=== PATIENT | female | born 1980 | race Caucasian/White ===

== ENCOUNTER → 2021-09-16 15:59 | Outpatient (CLI) | payer MEDICAID, SELFPAY ==
--- NOTE | 2021-09-16 16:06 | MM_ITS ---
PROCEDURE INFORMATION: Exam: Bilateral Screening 3D Mammography Exam date and time: 09/16/2021 4:07 PM Age: 40 years old Clinical indication: Screening examination TECHNIQUE: Imaging protocol: Bilateral Screening tomosynthesis and 2D mammography including computer-aided detection (CAD) when performed. COMPARISON: No relevant prior studies available. FINDINGS: MAMMOGRAPHY: Breast composition: There are scattered areas of fibroglandular density. Mass: None. Architectural distortion: No new or suspicious architectural distortion. Calcifications: No new or suspicious calcifications are present Asymmetric density: No new or suspicious asymmetric density is present Skin thickening: None. Axillary adenopathy: None. Implants: Subpectoral augmentation implants are present. IMPRESSION: No mammographic evidence of malignancy. Recommend annual screening mammography unless otherwise clinically indicated. ASSESSMENT: BI-RADS category 2: Benign
== END ==
PROVIDERS: PCP Family Medicine; Visit Provider Family Medicine
DX: Z12.31 Encounter for screening mammogram for malignant neoplasm of breast (principal)
CPT/HCPCS: 77062; 77063; 77066; 77067; G0279

== ENCOUNTER 2022-11-13 13:16 | Emergency (ER) | payer MEDICAID, SELFPAY ==
[2022-11-13] VITALS (9 sets, daily range): BP systolic 86–126; BP diastolic 52–90; PULSE 82–104; RESP 16–18; TEMP 36.7–37.1; O2SAT 96–99; BMI 25.2
--- NOTE | 2022-11-13 13:25 | CT_ITS ---
FINAL REPORT CLINICAL HISTORY: abd pain, frequent emesis FINDINGS: CT OF THE ABDOMEN AND PELVIS WITH CONTRAST Axial CT images of the abdomen and pelvis were obtained after the administration of oral and iv contrast. Coronal reformatted images were also obtained and reviewed.This study was performed with techniques to keep radiation doses as low as reasonably achievable (ALARA). Individualized dose reduction techniques using automated exposure control or adjustment of mA and/or kV according to the patient's size were employed. Abdomen: The lung bases are clear. The heart is normal in size. The liver has an unremarkable appearance, without evidence of mass or biliary ductal dilatation. The spleen is unremarkable. No adrenal mass is present. The pancreas has an unremarkable appearance. There are numerous small nonobstructing bilateral renal stones. There is mild bilateral hydronephrosis and hydroureter. No ureteral stone is identified. The aorta is normal in caliber. There is no free fluid or adenopathy. No mass or abnormal fluid collection is seen. Pelvis: The appendix normal. There is diffuse bladder wall thickening which is likely inflammatory. The patient is status post hysterectomy. There is no evidence of mass or adenopathy. There is no evidence of bowel obstruction. IMPRESSION: Mild bilateral hydronephrosis and hydroureter with no ureteral stone identified. Small nonobstructing bilateral renal stones. Diffuse bladder wall thickening is likely inflammatory. Reviewed, Interpreted and Dictated by Dave Dominguez III, MD Transcribed by Cassie Venegas Authenticated and [facility]
--- NOTE | 2022-11-13 13:25 | XR_ITS ---
FINAL REPORT CLINICAL HISTORY: Acute cough, nausea FINDINGS: A single portable view of the chest was obtained. The heart size and pulmonary vascularity are within normal limits. The mediastinum is within normal limits. No acute pulmonary abnormality is identified. The bony thorax is intact. IMPRESSION: No active cardiopulmonary disease. Reviewed, Interpreted and Dictated by Dave Dominguez III, MD Transcribed by Csasie Venegas Authenticated and [facility]
--- NOTE | 2022-11-13 13:29 | HMH.EDGENADL ---
Discharge Plan Disposition Patient Disposition: Home, Self-Care Condition: Good Prescriptions Prescriptions: New prednisone 10 mg tablet 10 mg PO ONCE Qty: 1 0RF Rx Instructions: see taper instructions dextromethorphan HBr [Cough Gels (DM)] 15 mg capsule 30 mg PO Q8H PRN (Reason: cough) Qty: 10 0RF Discontinued promethazine-DM 120 ML syrup 5 ml PO Q6HP PRN (Reason: Cough) Qty: 240 0RF prednisone 10 MG tablet 10 mg PO DAILY 9 Days Qty: 21 0RF Rx Instructions: Take 40 mg for 3 days, then take 20 mg for 3 days, then take 10 mg for 3 days, then stop. azithromycin 250 MG tablet 250 mg PO UD DOSE PK Qty: 6 0RF Rx Instructions: Take two (2) tablets today, then one (1) tablet days #2 thru #5 No Action albuterol sulfate 18 GM HFA aerosol inhaler 1 - 2 puffs IH Q4-6H PRN (Reason: Shortness Of Breath Or Wheezing) Qty: 1 0RF Referrals Follow up/Referrals: Abelino Mcrae MD [Referring] - See instructions Marty South [Primary Care Provider] - See instructions Activity Restrictions/Add. Instructions Additional Instructions/Restrictions: I have prescribed a one-time dose of steroids which should help with your sore throat and some cough medication. As discussed, I do believe your smoking is likely contributing to some of your symptoms. I have also placed a referral to the GI doctor for possible endoscopy if the symptoms persist. Clinical Impressions Clinical Impression: Acute bronchitis Qualifiers: Bronchitis organism: unspecified organism Qualified Code(s): J20.9 - Acute bronchitis, unspecified Instructions Patient Instructions: DI for Acute Abdominal Pain Discharge ED Provider: Porfirio Becerril General Adult HPI <Cain Gambino MD - Last Filed: 11/13/22 14:55> General Chief complaint: Abdominal Pain Stated complaint: vomiting, JUNIOR, stomach pain Time Seen by Provider: 11/13/22 13:18 History of Present Illness HPI narrative: This 42-year-old female with a history of rheumatoid arthritis, hypertension, and some degree of kidney dysfunction presents to the emergency department with reportedly months of a tickle in her throat that causes emesis anytime she eats. Nonbloody, nonbilious. Patient states she has chronic mild abdominal pain from frequent vomiting. She denies dysuria but admits to having incontinence with coughing fits. She states she has seen her primary care physician who put her on an allergy pill and Pepcid but her symptoms have not improved. Patient has not been evaluated with imaging for these problems. She states she also has a mild frontal headache yesterday and today controlled by ibuprofen. She denies any current dizziness, numbness, tingling, weakness, chest pain, shortness of breath. She does state after a bad coughing fit she will be slightly dizzy but this rapidly improves. Patient does smoke, no alcohol or illicit drug use. When further asked if she is genuinely having emesis after every single thing she eats or drinks, she states no. She does not have nausea preceding the vomiting. She also has not noticed any significant weight loss. Related Data Previous Rx's Medication Instructions Recorded albuterol sulfate 90 mcg/actuation 1 - 2 puffs IH Q4-6H PRN Shortness 03/26/19 aerosol inhaler Of Breath Or Wheezing #1 inh dextromethorphan HBr 15 mg capsule 30 mg PO Q8H PRN cough #10 caps 11/13/22 (Cough Gels (DM)) prednisone 10 mg tablet 10 mg PO ONCE #1 tab 11/13/22 Allergies Allergy/AdvReac Type Severity Reaction Status Date / Time No Known Allergies Allergy Verified 03/26/19 20:51 [facility] <Cain Gambino MD - Last Filed: 11/13/22 14:55> [facility] Disclaimer: The information contained in this section may have been updated after the patient was seen, as this information can be updated by other users. Medical History (Updated 11/13/22 @ 16:40 by Porfirio Becerril MD) High blood pressure Rheumatoid arthritis Surgical History (Updated 11/13
--- NOTE | 2022-11-13 13:38 | CT_ITS ---
FINAL REPORT CLINICAL HISTORY: Headache, cyclic vomiting FINDINGS: Axial images of the head were obtained without contrast. Coronal reformatted images were also obtained.This study was performed with techniques to keep radiation doses as low as reasonably achievable (ALARA). Individualized dose reduction techniques using automated exposure control or adjustment of mA and/or kV according to the patient''s size were employed. There is no evidence of intracranial hemorrhage or mass. The ventricular size is within normal limits. There is no evidence of shift of the midline structures. No abnormal extra axial fluid collection is identified. No skull abnormality is seen on the bone window images. IMPRESSION: No acute intracranial abnormality. Reviewed, Interpreted and Dictated by Dave Dominguez III, MD Transcribed by Cassie Venegas Authenticated and . [facility]
--- NOTE | 2022-11-13 13:42 | PC.NURSE ---
pt to ct scan
[2022-11-13 13:57] LABS: Chloride 100 mmol/L (98-107); Sodium 134 mmol/L (136-145)
[2022-11-13 13:59] LABS: Alanine Aminotransferase 25 U/L (12-78); Aspartate Amino Transferase 30 U/L (14-36); Blood Urea Nitrogen 3 mg/dl (7-17); Creatinine Clearance Estimated 135 mL/min (50-200); Estimated Glomerular Filt Rate 109 ml/min (>60); GFR (African American) 132 ML/MIN (>60)
[2022-11-13 14:00] LABS: Albumin Level 3.5 g/dl (3.5-5.0); Albumin/Globulin Ratio 1.1 (1.1-1.8); Alkaline Phosphatase 81 U/L (38-126); Anion Gap 9.5 mEq/L (5-15); Bilirubin,Total 0.2 mg/dl (0.2-1.3); Calcium 8.5 mg/dl (8.4-10.2); Carbon Dioxide 27 mmol/L (22.0-30.0); Globulin 3.3 g/dL (1.3-3.2); Glucose 140 mg/dl (74-100); Lipase 87 U/L (23-300); Total Protein,Serum 6.8 g/dl (6.3-8.2)
--- NOTE | 2022-11-13 14:03 | PC.NURSE ---
pt returned back from radiology and is providing urine specimen now
[2022-11-13 14:21] LABS: Basophils # 0.1 K/mm3 (0-0.2); Basophils % 0.8 % (0.1-2.0); Eosinophils # 0.3 K/mm3 (0.0-0.4); Eosinophils % 2.7 % (0.1-12.0); Hematocrit 41.6 % (37.0-47.0); Hemoglobin 13.4 g/dL (12.2-16.2); Lymphocytes # 2.3 K/mm3 (0.7-4.5); Lymphocytes % 25.3 % (10-50); Mean Corpuscular HGB Conc 32.2 g/dL (31.8-35.4); Mean Corpuscular Hemoglobin 27.6 pg (27.0-31.2); Mean Corpuscular Volume 85.9 fl (81-99); Mean Platelet Volume 10.6 fl (7.4-10.4); Monocytes # 0.6 K/mm3 (0.1-1.0); Monocytes % 6.6 % (1.7-9.3); Neutrophils % 64.6 % (37.0-80.0); Platelet Count 234 K/mm3 (142-424); Red Blood Count 4.84 M/mm3 (4.20-5.40); Red Cell Distribution Width 15.4 % (11.5-17.5); White Blood Count 9.2 K/mm3 (4.8-10.8)
[2022-11-13 14:26] LABS: Microscopic, Urine URINE MICROSCOPIC (MICROSCOPIC)
[2022-11-13 14:36] LABS: Appearance,Urine CLEAR (Clear); Bilirubin,Urine Negative (Negative); Blood, Urine Negative (Negative); Color,Urine YELLOW (Yellow); Glucose,Urine (UA) Negative (Negative); Ketones,Urine Negative (Negative); Leukocyte Esterase,Urine Negative (Negative); Nitrate,Urine Negative (Negative); Protein,Urine Negative (Negative); Urobilinogen,Urine 0.2 EU/dl (0.2)
[2022-11-13 15:04] LABS: Potassium 2.5 mmoL/L (3.5-5.1)
--- NOTE | 2022-11-13 15:04 | PC.NURSE ---
Dr. Becerril notified of critical potassium
[2022-11-13 15:06] LABS: Squamous Epithelial Cell,Urine Occasional #/hpf (0-5)
--- NOTE | 2022-11-13 15:37 | PC.NURSE ---
call made to radiology for update on status of scans. 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
--- NOTE | 2022-11-13 16:13 | PC.NURSE ---
Rounded on pt. No needs voiced at this time. Call light within reach.
--- NOTE | 2022-11-13 17:38 | PC.NURSE ---
Pt called, stating she is at the pharmacy to greens picker her medication. States I was supposed to get a cough medication but they said he sent in something for depression . I s/w Dr. Becerril and he reports I was just sending in the dextromethorphan. I will recheck it and send it . Pt let known Dr. Becerril was adjusting the medication and would send it electronically to the pharmacy shortly.
== END 2022-11-13 17:00 | disposition home or self-care (01) ==
PROVIDERS: Emergency Medicine; Emergency Provider Emergency Medicine; PCP Family Medicine
DX: J20.9 Acute bronchitis, unspecified (principal); E87.6 Hypokalemia; R11.10 Vomiting, unspecified; R10.9 Unspecified abdominal pain; F17.210 Nicotine dependence, cigarettes, uncomplicated; I10 Essential (primary) hypertension; M06.9 Rheumatoid arthritis, unspecified; R51.9 Headache, unspecified
CPT/HCPCS: 70450; 71045; 74177; 80053; 81001; 83605; 83690; 85025; 96361; 96374; 99285; Q9967

== ENCOUNTER → 2022-11-20 23:38 | Outpatient (CLI) | payer MEDICAID, SELFPAY ==
[2022-11-20 18:30] LABS: Adenovirus,PCR Not Detected (NotDetected); Coronavirus 19, PCR Not Detected (NotDetected); Coronavirus 229E Not Detected (NotDetected); Coronavirus NL63 Not Detected (NotDetected); Coronavirus OC43 Not Detected (NotDetected); Coronovirus HKU1,PCR Not Detected (NotDetected); Human Metapneumovirus Not Detected (NotDetected); Influenza A, PCR Not Detected (NotDetected); Influenza AH1, 2009 Not Detected (NotDetected); Influenza AH1, PCR Not Detected (NotDetected); Influenza AH3,PCR Not Detected (NotDetected); Influenza B, PCR Not Detected (NotDetected); Parainfluenza 1, PCR Not Detected (NotDetected); Parainfluenza 2, PCR Not Detected (NotDetected); Parainfluenza 3, PCR Not Detected (NotDetected); Parainfluenza 4, PCR Not Detected (NotDetected); Respiratory Syncytial Virus Not Detected (NotDetected); Rhinovirus/Enterovirus Not Detected (NotDetected)
[2022-11-20 18:39] LABS: Chloride 97 mmol/L (98-107); Sodium 133 mmol/L (136-145)
[2022-11-20 18:42] LABS: Alanine Aminotransferase 20 U/L (12-78); Albumin Level 3.5 g/dl (3.5-5.0); Albumin/Globulin Ratio 1.2 (1.1-1.8); Alkaline Phosphatase 87 U/L (38-126); Aspartate Amino Transferase 22 U/L (14-36); Bilirubin,Total 0.5 mg/dl (0.2-1.3); Blood Urea Nitrogen 6 mg/dl (7-17); Carbon Dioxide 26 mmol/L (22.0-30.0); Estimated Glomerular Filt Rate 78 ml/min (>60); GFR (African American) 95 ML/MIN (>60); Globulin 2.9 g/dL (1.3-3.2); Total Protein,Serum 6.4 g/dl (6.3-8.2)
[2022-11-20 18:43] LABS: Calcium 8.8 mg/dl (8.4-10.2); Glucose 91 mg/dl (74-100)
[2022-11-20 18:47] LABS: Anion Gap 12.6 mEq/L (5-15); Potassium 2.6 mmoL/L (3.5-5.1)
== END ==
PROVIDERS: PCP Family Medicine; Visit Provider Student in an Organized Health Care Education/Training Program
DX: J20.9 Acute bronchitis, unspecified (principal); J02.9 Acute pharyngitis, unspecified; R05.9 Cough, unspecified; Z72.0 Tobacco use
CPT/HCPCS: 80053; 87070; 87632; 87635

== ENCOUNTER → 2022-11-20 23:39 | Outpatient (CLI) | payer MEDICAID, SELFPAY | PROVIDERS: PCP Family Medicine; Visit Provider Student in an Organized Health Care Education/Training Program | DX: J02.9 Acute pharyngitis, unspecified (principal) ==

== ENCOUNTER 2022-11-27 15:38 | Emergency (ER) | payer MEDICAID, SELFPAY ==
[2022-11-27 15:38] VITALS: BP 131/90; PULSE 101; RESP 18; TEMP 36.8; O2SAT 98; BMI 25.3
--- NOTE | 2022-11-27 15:55 | EXP.UTC ---
Discharge Plan Disposition Patient Disposition: Home, Self-Care Condition: Good Prescriptions Prescriptions: New fluconazole [Diflucan] 100 mg tablet 100 mg PO DAILY 3 Days Qty: 3 2RF nystatin 100,000 unit/mL suspension 5 ml PO QID 10 Days Qty: 200 0RF Rx Instructions: swish and spit No Action zolpidem 10 mg tablet 10 mg PO HS folic acid 1 mg tablet 2 mg PO DAILY Patient Comments: TAKE 2 TABLETS BY MOUTH ONCE DAILY omeprazole 40 mg capsule,delayed release(DR/EC) 40 mg PO DAILY solifenacin 10 mg tablet 10 mg PO DAILY Patient Comments: TAKE 1 TABLET BY MOUTH ONCE DAILY famotidine 40 mg tablet 40 mg PO HS Patient Comments: TAKE 1 TABLET BY MOUTH EVERY DAY AT BEDTIME losartan-hydrochlorothiazide 100-12.5 mg tablet 1 tab PO DAILY Patient Comments: TAKE 1 TABLET BY MOUTH ONCE DAILY leflunomide [Arava] 20 mg tablet 20 mg PO DAILY fluticasone propionate [Allergy Relief (fluticasone)] 50 mcg/actuation spray,suspension 1 spray intranasal DAILY Qty: 16 2RF Rx Instructions: administer into each nostril benzonatate 100 mg capsule 100 mg PO BID PRN (Reason: cough) Qty: 14 0RF potassium chloride 20 mEq tablet extended release See Rx Instructions .ROUTE .COMPLEX Qty: 60 3RF Rx Instructions: two daily starting today, continue twice a day until labs are rechecked early next week albuterol sulfate 18 GM HFA aerosol inhaler 1 - 2 puffs inhalation Q4-6H PRN (Reason: Shortness Of Breath Or Wheezing) Qty: 1 0RF Referrals Follow up/Referrals: Marty South [Primary Care Provider] - See instructions Activity Restrictions/Add. Instructions Additional Instructions/Restrictions: Drink plenty of fluids. Take tylenol or ibuprofen for pain. Take the medications as directed. Follow up with your regular doctor. GO TO THE ER FOR ANY WORSENING SYMPTOMS Clinical Impressions Clinical Impression: Oral thrush Instructions Patient Instructions: DI for Thrush, Nystatin, Thrush-Adult Discharge ED Provider: Michael Chen [facility] HPI General Stated complaint: sore throat, Time Seen by Provider: 11/27/22 15:55 History of Present Illness Provider Complaint: She states that for the past 2 days she has had sore throat, chills, body aches and low grade fever. Related Data Home Medications Medication Instructions Recorded Confirmed famotidine 40 mg tablet 40 mg PO HS 11/20/22 11/27/22 folic acid 1 mg tablet 2 mg PO DAILY 11/20/22 11/27/22 leflunomide 20 mg tablet (Arava) 20 mg PO DAILY 11/20/22 11/27/22 losartan 100 1 tab PO DAILY 11/20/22 11/27/22 mg-hydrochlorothiazide 12.5 mg tablet omeprazole 40 mg capsule,delayed 40 mg PO DAILY 11/20/22 11/27/22 release solifenacin 10 mg tablet 10 mg PO DAILY 11/20/22 11/27/22 zolpidem 10 mg tablet 10 mg PO HS 11/20/22 11/27/22 Previous Rx's Medication Instructions Recorded albuterol sulfate 90 mcg/actuation 1 - 2 puffs inhalation Q4-6H PRN 03/26/19 aerosol inhaler Shortness Of Breath Or Wheezing #1 inh benzonatate 100 mg capsule 100 mg PO BID PRN cough #14 caps 11/20/22 fluticasone propionate 50 1 spray intranasal DAILY #16 grams 11/20/22 mcg/actuation nasal spray,suspension (Allergy Relief (fluticasone)) potassium chloride 20 mEq See Rx Instructions .Route 11/21/22 tablet,extended release .COMPLEX #60 tabs fluconazole 100 mg tablet 100 mg PO DAILY 3 days #3 tabs 11/27/22 (Diflucan) nystatin 100,000 unit/mL oral 5 ml PO QID 10 days #200 mL 11/27/22 suspension Allergies Allergy/AdvReac Type Severity Reaction Status Date / Time No Known Allergies Allergy Verified 11/27/22 16:01 [facility] Disclaimer: The information contained in this section may have been updated after the patient was seen, as this information can be updated by other users. Medical History High blood
[2022-11-27 16:09] LABS: UTC Strep Screen (Rapid) Negative (Negative)
[2022-11-27 16:28] VITALS: BP 131/90; PULSE 101; RESP 18; TEMP 36.8; O2SAT 98
== END 2022-11-27 16:28 | disposition home or self-care (01) ==
PROVIDERS: Emergency Provider Nurse Practitioner Family; PCP Family Medicine
DX: J02.9 Acute pharyngitis, unspecified (principal); B37.0 Candidal stomatitis; F17.210 Nicotine dependence, cigarettes, uncomplicated; I10 Essential (primary) hypertension; M06.9 Rheumatoid arthritis, unspecified
CPT/HCPCS: 87880; 99204; 99212; G0463

== ENCOUNTER → 2022-12-08 09:18 | Outpatient (CLI) | payer MEDICAID, SELFPAY ==
--- NOTE | 2022-12-08 09:24 | NM_ITS ---
FINAL REPORT TECHNIQUE: 0.543 millicuries of technetium 99m sulfur colloid was ingested with eggs the, 6 ounces of water and toast with butter. CLINICAL HISTORY: NAUSEA AND VOMITING x 7 months 9:55 am .543 tc sulfur colloid injected into 2 whole eggs white toast with butter 6 oz cup of water FINDINGS: GASTRIC EMPTYING SCAN Static images show normal emptying of the stomach into the small bowel. Based on the time activity curve, the estimated half-emptying time is 52 minutes. IMPRESSION: Normal gastric emptying study. Reviewed, Interpreted and Dictated by Dave Dominguez III, MD Transcribed by Chris Bentley Authenticated and [facility]
== END ==
PROVIDERS: PCP Family Medicine; Visit Provider Family Medicine
DX: R11.10 Vomiting, unspecified (principal); R11.2 Nausea with vomiting, unspecified
CPT/HCPCS: 78264; A9541

== ENCOUNTER 2023-04-21 09:50 | Day surgery (SDC) | payer MEDICAID, SELFPAY ==
[2023-04-21 10:40] VITALS: BP 116/81; PULSE 89; RESP 18; TEMP 36.1; O2SAT 97
--- NOTE | 2023-04-21 11:34 | EXP.ANES.CKL ---
[facility] Disclaimer: The information contained in this section may have been updated after the patient was seen, as this information can be updated by other users. Medical History Rheumatoid arthritis High blood pressure Surgical History History of breast augmentation Hx of hysterectomy Family History Other Family history of diabetes mellitus type II Social History Smoking Status: Current every day smoker tobacco type: cigarettes packs per day: 1 alcohol intake: never substance use type: denies use current occupational status: other Travel in the last 8 weeks: None [facility] Anesthesia Checklist Patient Identification Patient Identification: Arm Band and Verbal (Name & ) Structural Data Admitted From: Home Planned Operative Procedure/s: EGD Consent for Planned Operative Procedure(s) Verified: Yes NPO Status Verified Time NPO: 00:00 Additional verifications Anesthesia Reactions: No Airway Assessment Mallampati Score:: Class I C-Spine Mobility Assessed: Yes TMJ Mobility Assessed: Yes Dentition: Edentulous Neurological Assessment Level of Consciousness: Awake Hx Seizures: No Numbness or tingling in extremities: No Anesthesia Plan Anesthesia Risk discussed: Yes Anesthesia Plan: Verified ASA Class: II Anesthesia Type: MAC
[2023-04-21 11:41] VITALS: O2SAT 100
--- NOTE | 2023-04-21 11:54 | P.PCN_ITS ---
Procedure: Date: 04/21/23 Patient Date of :: 1980 Procedure Performed:: EGD Indications:: The patient is a 42-year-old who presents for EGD evaluation of dysphagia, nausea, vomiting, and abdominal pain Performing Provider:: Tonio Reynoso MD Referring Provider:: Megan Staley APRN gastroenterology Sedation:: See RN record Procedure:: The gastroscope was gently passed through the incisoral orifice into the oral cavity and under direct visualization the esophagus was intubated. The endoscope was passed down the esophagus, through the stomach, and into the duodenum. Color, texture, mucosa, and anatomy of the esophagus, stomach, and duodenum were carefully examined with the scope. Findings:: The examined esophagus appeared normal. The Z-line was measured at 37 cm. Biopsies were obtained from the mid and distal esophagus for histology. Biopsies that were obtained from the midesophagus felt fibrotic. Empiric esophageal dilatation was performed with a Campbell dilator 54 Nigerian. There was mild to moderate inflammation characterized by erythema of the gastric antrum and body. Biopsies were obtained with a cold forceps for histology. Examined d uodenum appeared normal. Biopsies were obtained from the duodenum with a cold forceps for histology. Recommendations:: Await pathology results Follow-up with referring provider Complications:: None Estimated blood obtained (mL): 0 Colonoscopy Component Colonoscopy Component Was a colonoscopy performed during today's procedure?: No
[2023-04-21 11:55] VITALS: BP 90/59; PULSE 88; RESP 16; TEMP 36.2; O2SAT 93
[2023-04-21 12:05] VITALS: BP 91/64; PULSE 76; RESP 16; O2SAT 93
[2023-04-21 12:11] VITALS: BP 101/73; PULSE 85; RESP 16; O2SAT 94
--- NOTE | 2023-05-05 11:38 | HMH.SCOPE ---
Procedure: Date: 04/21/23 Patient Date of :: 1980 Procedure Performed:: EGD Indications:: The patient is a 42-year-old who presents for EGD evaluation of nausea, vomiting, abdominal pain, and intermittent dysphagia symptom Performing Provider:: Tonio Reynoso MD Referring Provider:: Megan Staley APRN Sedation:: See RN records Procedure:: The gastroscope was gently passed through the incisoral orifice into the oral cavity and under direct visualization the esophagus was intubated. The endoscope was passed down the esophagus, through the stomach, and into the duodenum. Color, texture, mucosa, and anatomy of the esophagus, stomach, and duodenum were carefully examined with the scope. Findings:: The examined esophagus appeared normal. Biopsies were obtained from the mid and distal esophagus for histology. There was mild erythema in the gastric antrum and body. Biopsies were obtained with a cold forceps for histology. Examined duodenum appeared normal. Biopsies were obtained for histology. The gastroscope was withdrawn and empiric esophageal dilatation was performed with a Campbell dilator at 54 Fr.. Impression: Normal-appearing esophagus Minimal gastritis Normal examined duodenum Empiric esophageal dilatation performed Recommendations:: Await pathology results Follow-up with referring provider Complications:: non Estimated blood obtained (mL): 0 Colonoscopy Component Colonoscopy Component Was a colonoscopy performed during today's procedure?: No
== END 2023-04-21 12:18 | disposition home or self-care (01) ==
PROVIDERS: Visit Provider Internal Medicine
PROC: 0DJ08ZZ Inspection of Upper Intestinal Tract, Via Natural or Artificial Opening Endoscopic (ICD-10-PCS; CPT 43235; principal; 2023-04-21 11:00)
DX: R11.2 Nausea with vomiting, unspecified (principal); R10.9 Unspecified abdominal pain; R13.10 Dysphagia, unspecified; K29.70 Gastritis, unspecified, without bleeding
CPT/HCPCS: 43239; 43248

== ENCOUNTER 2024-09-12 08:34 | Outpatient (CLI) | payer MEDICAID, SELFPAY ==
--- OUTSIDE RECORDS SUMMARY | 2024-09-05 16:30 | XMS_ITS | Encounter Summary ---
[facility] Organization [facility] Address [address] [place] [address] Care Team Providers Care Interviewing Clerk Name Role Phone Marty South MD Primary Care Provider [phone] Reason for Visit * Reason Comments Hypertension Hyperlipidemia Encounter Details Date Type Department Care Team (Late st Contact Info) Description 09/05/2024 4:30 PM EDT Office Visit [facility] [address] [place] [address] Marty South MD [address] [place] [address] Primary hypertension (Primary Dx); Elevated cholesterol; Primary insomnia; Vitamin D deficiency; Personal history of tobacco use, presenting hazards to health Social History Tobacco Use Types Packs/Day Years Used Date Smoking Tobacco: Every Day Cigarettes 1 15 Smokeless Tobacco: Never Alcohol Use Standard Drinks/Week Comments Not Currently 0 (1 standard drink = 0.6 oz pur e alcohol) rare PHQ-2 Answer Date Recorded Retired PHQ-9: Brief Depression Severity Measure Score 1 02/27/2022 PHQ-2 Answer Date Recorded Patient Health Questionnaire-2 Score 0 09/05/2024 Comments No Sex and Gender Information Value Date Recorded Sex Assigned at Female 09/05/2024 3:01 PM EDT Legal Sex Female 3:15 PM EST Gender Identity Not on file Sexual Orientation Not on file 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 Not on file Not on file Not on file documented as of this encounter Last Filed Vital Signs Vital Sign Reading Time Taken Comments Blood Pressure 118/68 09/05/2024 4:12 PM EDT Pulse 82 09/05/2024 4:12 PM EDT Temperature 36.6 C (97.8 F) 09/05/2024 4:12 PM EDT Respiratory Rate 18 09/05/2024 4:12 PM EDT Oxygen Saturation 97% 09/05/2024 4:12 PM EDT Inhaled Oxygen Concentration - - Weight 66.7 kg (147 lb) 09/05/2024 4:12 PM EDT Height 165.1 cm (5' 5 ) 09/05/2024 4:12 PM EDT Body Mass Index 24.46 09/05/2024 4:12 PM EDT documented in this encounter Functional Status documented as of this encounter Progress Notes * Marty South MD - 09/05/2024 4:30 PM EDT Subjective Celestina Lowry is a 43 y.o. female. Cough Associated symptoms: no chest pain, no chills, no fever, no headaches, no rash and no sore throat Celestina Lowry is here for follow-up of hypertension of several years duration. She is not exercising and is not adherent to a low-salt diet. Patient does not check her blood pressure. She is compliant with meds. Celestina Lowry returns today for follow up of Hyperlipidemia Celestina indicates her exercise level as irregularly. Diet: uncahnged Patient is compliant with medications Any side effects to medications: chest pain No myalgia No memory change No Pt is due for labs Sleep doing well with ambien No SE noted with medicine The following portions of the patient's history were reviewed and updated as appropriate: allergies, current medications, past family history, past medical history, past social history, past surgicalhistory, and problem list. Review of Systems Constitutional: Negative for chills and fever. HENT: Negative for congestion and sore throat. Cardiovascular: Negative for chest pain. Gastrointestinal: Negative for abdominal pain, nausea and vomiting. Musculoskeletal: Negative for neck pain. Skin: Negative for rash. Neurological: Negative for weakness and headaches. Objective Physical Exam Vitals and nursing note reviewed. Constitutional: General: She is not in acute distress. Appearance: Normal appearance. She is well-developed. Cardiovascular: Rate and Rhythm: Normal rate and regular rhythm. Heart sounds: Normal heart sounds. Pulmonary: Effort: Pulmonary effort is normal. Breath sounds: Normal breath sounds. Neurological: Mental Status: She is alert and oriented to person, place, and time. Psychiatric: Mood and Affect: Mood normal. Behavior: Behavior normal. Thought Content: Thought content normal. Judgment: Judgment normal. Assessment & Plan Diagnoses and all orders for this visit: 1. Primary hypertension (Primary) - losartan-hydrochlorothiazide (Hyzaar) 50-12.5 MG per tablet; Take 1 tablet by mouth Daily. Dispense: 90 tablet; Refill: 1 - CBC & Differential - Comprehensive Metabolic Panel - Uric Acid 2. Elevated cholesterol - rosuvastatin (Crestor) 10 MG tablet; Take 1 tablet by mouth Every Night. Dispense: 90 tablet; Refill: 1 - Lipid Panel - Comprehensive Metabolic Panel 3. Primary insomnia - zolpidem (AMBIEN) 10 MG tablet; Take 1 tablet by mouth At Night As Needed for Sleep. Dispense: 30tablet; Refill: 5 4. Vitamin D deficiency - Vitamin D,25-Hydroxy 5. Personal history of tobacco use, presenting hazards to health - nicotine (NICODERM CQ) 7 MG/24HR patch; Place 1 patch on the skin as directed by provider Daily. Dispense: 14 patch; Refill: 1 - nicotine (NICODERM CQ) 14 MG/24HR patch; Place 1 patch on the skin as directed by provider Daily. Dispense: 14 patch; Refill: 1 - nicotine (NICODERM CQ) 21 MG/24HR patch; Place 1 patch on the skin as directed by provider Daily.Dispense: 14 patch; Refill: 1 BP doing great, no change in meds Refilled crestor and will check lipids when fasting No change in JUANCARLOS riley reviewed Nicotine patch written, failed chantix in past documented in this encounter Plan of Treatment Upcoming Encounters Date Type Department Care Team (Late st Contact Info) Description 03/09/2025 10:15 AM EST Office Visit [facility] [address] [facility] [place] [place] [address] Marty South MD [address] [place] [address] Scheduled Orders Name Type Priority Associated Diagnoses Orde r Schedule CBC & Differential Lab Panel Routine Primary hypertension Ordered: 09/05/2024 Lipid Panel Lab Routine Elevated cholesterol Ordered: 09/05/2024 Comprehensive Metabolic Panel Lab Routine Primary hypertension Elevated cholesterol Ordered: 09/05/2024 Uric Acid Lab Routine Primary hypertension Ordered: 09/05/2024 Vitamin D,25-Hydroxy Lab Routine Vitamin D deficiency Ordered: 09/05/2024 documented as of this encounter Visit Diagnoses Diagnosis Primary hypertension- Primary Unspecified essential hypertension Elevated cholesterol Pure hypercholesterolemia Primary insomnia Persistent disorder of initiating or maintaining sleep Vitamin D deficiency Personal history of tobacco use, presenting hazards to health documented in this encounter Care Teams Interviewing Clerk Relationship Specialty Start Date End Date Marty South MD [address] [place] [address] PCP - General Family Medicine 01/31/19 documented as of this encounter
--- OUTSIDE RECORDS SUMMARY | 2024-09-12 08:42 | XMS_ITS | Encounter Summary ---
Author Organization [employer] ([place], [place], [place], [place]) Address [address] [place] [address] Care Team Providers Care Dramatic Critic Name Role Phone Rene South MD Primary Care Provider [phone] Encounter Details Date Type Department Care Team (Late st Contact Info) Description 05/17/2020 Transcribed Document [facility] [place] [facility] [place] [address] ProviderElizabeth MD [facility] [place] [id number] Social History Tobacco Use Types Packs/Day Years Used Date Smoking Tobacco: Never Assessed Comments Unknown Sex and Gender Information Value Date Recorded Sex Assigned at Not on file Legal Sex Female 6:52 PM CDT Gender Identity Not on file Sexual Orientation Not on file documented as of this encounter Miscellaneous Notes * Cerner Conversion Note - Historical ProviderMD - 05/17/2020 2:51 PM CDT Nursing Discharge Summary Entered On: 05/17/2020 14:52 EDT Performed On: 05/17/2020 14:51 EDT by KARRIE ZAYAS Discharge Documentation Discharge Date/Time : 05/17/2020 14:51 EDT Patient Disposition, General : Discharge Discharge To : Home with ambulatory/outpatient follow-up Mode Of Departure, General Discharge : Ambulatory Accompanied By, Discharge : Unaccompanied IV Discontinued : Yes Personal Belongings With Patient : Yes Discharge Instructions Reviewed With, Opportunity For Questions Given : Patient Patient Education Completed : Yes Teaching Method : Explanation Teaching Evaluation : Verbalizes understanding Education Comment : jorge infusion without difficulty. a+ox4. skin wdp rsp unlabored/even KARRIE ZAYAS - 05/17/2020 14:51 EDT documented in this encounter Plan of Treatment Not on file documented as of this encounter Visit Diagnoses Not on filedocumented in this encounter Care Teams Dramatic Critic Relationship Specialty Start Date End Date Rene South MD [address] [place] [address] PCP - General Family Medicine 01/13/22 documented as of this encounter
--- OUTSIDE RECORDS SUMMARY | 2024-09-12 08:42 | XMS_ITS | Encounter Summary ---
Author Organization [employer] ([place], [place], [place], [place]) Address [address] [place] [address] Care Team Providers Care Faro Dealer Name Role Phone Rene South MD Primary Care Provider [phone] Encounter Details Date Type Department Care Team (Late st Contact Info) Description 05/17/2020 Transcribed Document [facility] [place] [facility] [place] [address] ProviderElizabeth MD [facility] [place], [place] [id number] Social History Tobacco Use Types Packs/Day Years Used Date Smoking Tobacco: Never Assessed Comments Unknown Sex and Gender Information Value Date Recorded Sex Assigned at Not on file Legal Sex Female 6:52 PM CDT Gender Identity Not on file Sexual Orientation Not on file documented as of this encounter Miscellaneous Notes * Cerner Conversion Note - Historical ProviderMD - 05/17/2020 9:33 AM CDT Outpatient Visit History Entered On: 05/17/2020 9:35 EDT Performed On: 05/17/2020 9:33 EDT by KARRIE ZAYAS Vital Measurements Temperature Source : Temporal artery scanning Temperature Mode : Fahrenheit Temperature, Fahrenheit : 97 Deg F Clinical Temperature, C : 36.1 Deg C Pulse Method : Pulse Oximetry Peripheral Pulse Rate : 90 bpm Respiratory Rate : 16 Breaths/Min Blood Pressure Location : Arm, right upper Blood Pressure Source : Non-Invasive BP Device Blood Pressure Position : Sitting Systolic Blood Pressure : 139 mmHg Diastolic Blood Pressure : 78 mmHg Oxygen Saturation : 98 % Oxygen Therapy Mode : Room air KARRIE ZAYAS - 05/17/2020 9:33 EDT Height and Weight, Clinical Dosing Height Source : Stated Height Entry Format : [place] Height, Feet : 5 ft(Converted to: 152 cm, 60 Inch) Height, Inches : 9 Inch(Converted to: 0 ft 9 Inch, 22.86 cm) Clinical Height : 175.26 cm Weight Source : Standing scale Weight Entry Format : [place] Clinical Dosing Weight : 75 kg Weight, Pounds : 165 lb Body Surface Area (BSA) : 1.91 m2 Body Mass Index : 24.4 kg/m2 (HI) [place] Body Weight : 66 kg TANYAJEFFREYKARRIE 05/17/2020 9:33 EDT Quick Look Assessment Level of Consciousness : Alert, Awake Affect/Behavior : Appropriate, Calm, Cooperative Orientation : Oriented x 4 Skin Temperature : Warm Skin Description : Dry TANYAJEFFREYKARRIE 05/17/2020 9:33 EDT Health Histories Smoking Status : 10 or more cigarettes (1/2 pack or more)/day in last 30 days Smokeless Tobacco Status : Never Desires Tobacco Cessation Medication : No Reason for No Tobacco Cessation Medication : Refuses FDA approved medications KARRIE ZAYAS 05/17/2020 9:33 EDT Social History (As Of: 05/17/2020 09:35:36 EDT) Infectious Disease History Has the patient ever been tested for COVID-19? : Yes, Patient stated results Negative Date of COVID-19 test known? : No Does patient have symptoms of COVID-19? : No COVID19 Screening : No Experiencing Infectious Disease Symptoms : No symptoms Physical contact outside US in the last 30 days : No Infectious Disease History : None Tuberculosis Symptoms : None KARRIE ZAYAS 05/17/2020 9:33 EDT COVID19 PreProcedure Screening Is this an Emergent or Add on Procedure? : No Date PreProcedure COVID-19 test known? : No Has patient been isolated since the test : No Exposed to COVID19 symptoms since test? : No KARRIE ZAYAS 05/17/2020 9:33 EDT Advance Directive Patient has Advance Directive *Q : No, patient refuses Advance Directive information KARRIE ZAYAS 05/17/2020 9:33 EDT [place] Suicide Severity Rating Scale (C-SSRS) CSSRS Past Month Wish to be : No CSSRS Past Month Suicidal Thoughts : No CSSRS Lifetime Suicide Behavior : No Suicide Severity Rating Score : 0 Suicide Severity Rating : No Additional Care Required at this time KARRIE ZAYAS 05/17/2020 9:33 EDT Psychosocial History Currently in Unsafe Situation : No KARRIE ZAYAS 05/17/2020 9:33 EDT Fall Risk Scales ABCs Fall Injury Risk Identification : None HOYOS Hx Falls Immediate/Within 3 Months : No [place]os Secondary Diagnosis : Yes HOYOS Use of Ambulatory Aid : None HOYOS IV Therapy or IV Access : Yes [place] Gait/Transferring : Normal, bedrest, immobile [place] Mental Status : Oriented to own ability [place] Fall Risk Score : 35 HOYOS Fall Scale Risk Level : 25-45 Medium Risk [place] Fall Interventions : Adequate lighting, Assistive devices within reach, Bed in low position, Call device within reach, Fall prevention handout/education per facility policy, Frequent orientation to call device, Frequent orientation to surroundings, Hourly comfort/safety rounds, Non-slip footwear, Personal items within reach, Reinforced to call for assistance before getting out of bed, Room free of clutter/spills, Wheels locked, Wires/Cords secured KARRIE ZAYAS 05/17/2020 9:33 EDT Pain Assessment Pain Assessment : Initial assessment Intensity : 0 KARRIE ZAYAS 05/17/2020 9:33 EDT documented in this encounter Plan of Treatment Not on file documented as of this encounter Visit Diagnoses Not on filedocumented in this encounter Care Teams Faro Dealer Relationship Specialty Start Date End Date Rene South MD [address] [place] [id number] PCP - General Family Medicine 01/13/22 documented as of this encounter
--- OUTSIDE RECORDS SUMMARY | 2024-09-12 08:42 | XMS_ITS | Encounter Summary ---
Author Organization [email or web address] ([place], [place], [place], [place]) Address [address] [place] [address] Care Team Providers Care Manager Enterprise Name Role Phone Rene South MD Primary Care Provider [phone] Encounter Details Date Type Department Care Team (Late st Contact Info) Description 05/31/2020 Transcribed Document [facility] [place] [facility] [place] [address] ProviderElizabeth MD [address] [place], [place] [id number] Social History Tobacco Use Types Packs/Day Years Used Date Smoking Tobacco: Never Assessed Comments Unknown Sex and Gender Information Value Date Recorded Sex Assigned at Not on file Legal Sex Female 6:52 PM CDT Gender Identity Not on file Sexual Orientation Not on file documented as of this encounter Miscellaneous Notes * Cerner Conversion Note - Elizabeth ProviderMD - 05/31/2020 8:38 AM CDT Outpatient Visit History Entered On: 05/31/2020 8:40 EDT Performed On: 05/31/2020 8:38 EDT by HINA MUÑOZ RN Vital Measurements Temperature Source : Temporal artery scanning Temperature Mode : Fahrenheit Temperature, Fahrenheit : 97.2 Deg F Clinical Temperature, C : 36.2 Deg C Pulse Method : Pulse Oximetry Peripheral Pulse Rate : 101 bpm (HI) Pulse Rhythm : Regular Respiratory Rate : 17 Breaths/Min Blood Pressure Location : Arm, right upper Blood Pressure Source : Non-Invasive BP Device Blood Pressure Position : Sitting Systolic Blood Pressure : 124 mmHg Diastolic Blood Pressure : 88 mmHg Oxygen Saturation : 100 % Oxygen Therapy Mode : Room air HINA MUÑOZ RN - 05/31/2020 8:38 EDT Height and Weight, Clinical Dosing Height Source : Stated Height Entry Format : [place] Height, Feet : 5 ft(Converted to: 152 cm, 60 Inch) Height, Inches : 7 Inch(Converted to: 0 ft 7 Inch, 17.78 cm) Clinical Height : 170.18 cm Weight Source : Standing scale Weight Entry Format : [place] Clinical Dosing Weight : 75 kg Weight, Pounds : 165 lb Body Surface Area (BSA) : 1.86 m2 Body Mass Index : 25.9 kg/m2 (HI) [place] Body Weight : 61 kg HINA MUÑOZ RN - 05/31/2020 8:38 EDT Quick Look Assessment Level of Consciousness : Alert, Awake Affect/Behavior : Appropriate, Calm, Cooperative Orientation : Oriented x 4 Skin Temperature : Warm Skin Description : Normal for ethnicity HINA MUÑOZ RN - 05/31/2020 8:38 EDT Health Histories Smoking Status : 10 or more cigarettes (1/2 pack or more)/day in last 30 days Smokeless Tobacco Status : Never Desires Tobacco Cessation Medication : No Reason for No Tobacco Cessation Medication : ED/procedural patient only HINA MUÑOZ RN - 05/31/2020 8:38 EDT Social History (As Of: 05/31/2020 08:40:13 EDT) Infectious Disease History Has the patient ever been tested for COVID-19? : No, Patient stated Does patient have symptoms of COVID-19? : No COVID19 Screening : No Experiencing Infectious Disease Symptoms : No symptoms Physical contact outside US in the last 30 days : No Infectious Disease History : None Tuberculosis Symptoms : None HINA MUÑOZ RN - 05/31/2020 8:38 EDT COVID19 PreProcedure Screening Is this an Emergent or Add on Procedure? : No Date PreProcedure COVID-19 test known? : No Has patient been isolated since the test : N/A - PreProcedure, in-person visit Exposed to COVID19 symptoms since test? : N/A - PreProcedure, in-person visit HINA MUÑOZ RN - 05/31/2020 8:38 EDT Advance Directive Patient has Advance Directive *Q : No, patient refuses Advance Directive information HINA MUÑOZ RN - 05/31/2020 8:38 EDT [place] Suicide Severity Rating Scale (C-SSRS) CSSRS Past Month Wish to be : No CSSRS Past Month Suicidal Thoughts : No CSSRS Lifetime Suicide Behavior : No Suicide Severity Rating Score : 0 Suicide Severity Rating : No Additional Care Required at this time HINA MUÑOZ RN - 05/31/2020 8:38 EDT Psychosocial History Do You Have a History of the Following? : Patient denies history Currently in Unsafe Situation : No HINA MUÑOZ RN - 05/31/2020 8:38 EDT Fall Risk Scales ABCs Fall Injury Risk Identification : None HOYOS Hx Falls Immediate/Within 3 Months : No Hoyos Secondary Diagnosis : Yes HOYOS Use of Ambulatory Aid : None HOYOS IV Therapy or IV Access : Yes [place] Gait/Transferring : Normal, bedrest, immobile [place]os Mental Status : Oriented to own ability [place] Fall Risk Score : 35 HOYOS Fall Scale Risk Level : 25-45 Medium Risk [place] Fall Interventions : Adequate lighting, Bed in low position, Call device within reach, Personal items within reach, Room free of clutter/spills, Wheels locked, Wires/Cords secured HINA MUÑOZ RN - 05/31/2020 8:38 EDT Pain Assessment Pain Assessment : Initial assessment Intensity : 0 HINA MUÑOZ RN - 05/31/2020 8:38 EDT documented in this encounter Plan of Treatment Not on file documented as of this encounter Visit Diagnoses Not on filedocumented in this encounter Care Teams Manager Enterprise Relationship Specialty Start Date End Date Rene South MD [address] [place] [id number] PCP - General Family Medicine 01/13/22 documented as of this encounter
--- OUTSIDE RECORDS SUMMARY | 2024-09-12 08:42 | XMS_ITS | Encounter Summary ---
Author Organization [employer] ([place], [place], [place], [place]) Address [address] [place] [address] Care Team Providers Care Special Librarian Name Role Phone Rene South MD Primary Care Provider [phone] Encounter Details Date Type Department Care Team (Late st Contact Info) Description 05/31/2020 Transcribed Document [facility] [place] Family Medicine [facility] [place] [address] ProviderElizabeth MD [facility] [place] [phone] Social History Tobacco Use Types Packs/Day Years Used Date Smoking Tobacco: Never Assessed Comments Unknown Sex and Gender Information Value Date Recorded Sex Assigned at Not on file Legal Sex Female 6:52 PM CDT Gender Identity Not on file Sexual Orientation Not on file documented as of this encounter Miscellaneous Notes * Cerner Conversion Note - Historical ProviderMD - 05/31/2020 1:54 PM CDT Nursing Discharge Summary Entered On: 05/31/2020 13:55 EDT Performed On: 05/31/2020 13:54 EDT by HINA MUÑOZ RN Discharge Documentation Discharge Date/Time : 05/31/2020 13:54 EDT Patient Disposition, General : Discharge Discharge To : Home with ambulatory/outpatient follow-up Mode Of Departure, General Discharge : Ambulatory Accompanied By, Discharge : Other: self IV Discontinued : Yes Personal Belongings With Patient : Yes Pt's Own Supply of Medications Returned : No patient supply of medications to return Prescriptions Given to Patient : No Discharge Instructions Reviewed With, Opportunity For Questions Given : Patient Patient Education Completed : Yes Teaching Method : Explanation Teaching Evaluation : Verbalizes understanding Education Comment : Pt tolerated infusion without complaints or difficulty, dcd stable condition, vital signs stable HINA MUÑOZ RN - 05/31/2020 13:54 EDT documented in this encounter Plan of Treatment Not on file documented as of this encounter Visit Diagnoses Not on filedocumented in this encounter Care Teams Special Librarian Relationship Specialty Start Date End Date Rene South MD [address] [place] [address] PCP - General Family Medicine 01/13/22 documented as of this encounter
--- OUTSIDE RECORDS SUMMARY | 2024-09-12 08:42 | XMS_ITS | Clinical Summary ---
Author Organization [facility] ystem Address [address] [place] [address] Care Team Providers Care Architectural Engineer Name Role Phone aMrty South MD Primary Care Provider [phone] Allergies Active Allergy Reactions Criticality Noted Date Comments Varenicline Other (See Comments) 09/05/2024 dreams Latex Rash Low 01/13/2022 Lisinopril Other (See Comments) 01/31/2019 Chest tightness Medications losartan-hydroch lorothiazide (Hyzaar) 50-12.5 MG per tabletIndication s:Primary hypertension Take 1 tablet by mouth Daily. 90 tablet 1 5 Active rosuvastatin (Crestor) 10 MG tabletIndication s:Elevated cholesterol Take 1 tablet by mouth Every Night. 90 tablet 1 5 Active zolpidem (AMBIEN) 10 MG tabletIndication s:Primary insomnia Take 1 tablet by mouth At Night As Needed for Sleep. 30 tablet 5 5 Active nicotine (NICODERM CQ) 7 MG/24HR patchIndications :Personal history of tobacco use, presenting hazards to health Place 1 patch on the skin as directed by provider Daily. 14 patch 1 5 Active nicotine (NICODERM CQ) 14 MG/24HR patchIndications :Personal history of tobacco use, presenting hazards to health Place 1 patch on the skin as directed by provider Daily. 14 patch 1 5 Active nicotine (NICODERM CQ) 21 MG/24HR patchIndications :Personal history of tobacco use, presenting hazards to health Place 1 patch on the skin as directed by provider Daily. 14 patch 1 5 Active losartan-hydroch lorothiazide (Hyzaar) 50-12.5 MG per tabletIndication s:Primary hypertension Take 1 tablet by mouth Daily. 90 tablet 1 5 09/06/19 25 Discontinu ed(Reorder ) zolpidem (AMBIEN) 10 MG tabletIndication s:Primary insomnia Take 1 tablet by mouth At Night As Needed for Sleep. 30 tablet 5 5 09/06/19 25 Discontinu ed(Reorder ) predniSONE (DELTASONE) 20 MG tabletIndication s:Acute non-recurrent maxillary sinusitis Take 2 tablets by mouth Daily. 10 tablet 5 09/06/19 Discontinu ed(*Therap y completed) brompheniramine- pseudoephedrine- DM 30-2-10 MG/5ML syrupIndications :Acute non-recurrent maxillary sinusitis Take 5 mL by mouth 4 (Four) Times a Day As Needed for Cough or Congestion. 180 mL 5 09/06/19 Discontinu ed(*Therap y completed) rosuvastatin (Crestor) 10 MG tabletIndication s:Elevated cholesterol Take 1 tablet by mouth Every Night. 90 tablet 1 5 09/06/19 25 Discontinu ed(Reorder ) Active Problems Problem Noted Date Diagnosed Date Hypercholesteremia 03/08/2024 Primary insomnia 02/26/2021 Vitamin D deficiency 01/17/2021 Overactive bladder 08/26/2020 Nephrocalcinosis 09/27/2019 Primary hypertension 01/31/2019 Recurrent major depressive disorder, in full rem ission 01/31/2019 Anxiety 01/31/2019 Rheumatoid arthritis involvi ng multiple sites with positive rheumatoid factor 01/31/2019 GERD (gastroesophageal reflux disease) 9 Resolved Problems Problem Noted Date Diagnosed Date Resolved Date Acute bronchitis 12/02/2022 09/08/2023 Arthralgia of multiple joints 02/17/2021 03/08/2024 Joint stiffness 02/17/2021 09/08/2023 Encounters Date Type Department Care Team Description 09/05/2024 4:30 PM EDT Office Visit [facility] [address] [place] [address] Marty South MD Primary hypertension (Primary Dx); Elevated cholesterol; Primary insomnia; Vitamin D deficiency; Personal history of tobacco use, presenting hazards to health 09/05/2024 Travel from Last 3 Months Immunizations Immunization Administration Dates Next Due PPD Test 12/01/2023 Family History Medical History Relation Name Comments Diabetes Mother Maria Guadalupe wood Hyperlipidemia Mother Maria Guadalupe wood Hypertension Mother Maria Guadalupe wood Breast cancer Neg Hx Ovarian cancer Neg Hx Relation Name Status Comments Father unknown Alive Mother Maria Guadalupe wood Alive Social History Tobacco Use Types Packs/Day Years Used Date Smoking Tobacco: Every Day Cigarettes 1 15 Smokeless Tobacco: Never Tobacco Cessation:Ready to Q uit: Not Asked; Counseling Given: Not Answered Alcohol Use Standard Drinks/Week Comments Not Currently [...] 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 Not on file Not on file Last Filed Vital Signs Vital Sign Reading [...] Mass Index 24.46 09/05/2024 4:12 PM EDT Plan of Treatment Upcoming Encounters Date Type Department Care Team (Late st Contact Info) Description 03/09/2025 10:15 AM EST Office Visit [facility] [address] [id number] [phone] Marty South MD [address] [place] [address] Health Maintenance Due Date Last Done Comments Annual Gynecologic Pelvic an d Breast Exam 1980 Pneumococcal Vaccine 0-49 (1 of 2 - PCV) 10/05/1998 TDAP/TD VACCINES (1 - Tdap) 10/05/1998 COVID-19 Vaccine (1 - 2023-2 5 season) 2023 ANNUAL PHYSICAL 12/06/2024 12/07/2023 LIPID PANEL 03/07/2025 03/07/2024, 08/10, 02/26/2021, Additional history exists MAMMOGRAM 05/11/2025 05/12/2023, 03/12, 03/31/2023, Additional history exists HEPATITIS C SCREENING Completed 09/29/2023 , 09/29/2023, 09/29/2023, Additional history exists INFLUENZA VACCINE Discontinued Procedures Procedure Name Priority Date/Time Associated Diagnosis Comments LIPID PANEL Routine 03/07/2024 9:58 AM EST Primary hypertension Elevated cholesterol HEPATITIS C RNA, QUANTITATIVE, PCR (GRAPH) Routine 09/29/2023 10:56 AM EDT Exposure to hepatitis C MAMMO DIAGNOSTIC DIGITAL TOMOSYNTHESIS BILATERAL W CAD Routine 05/12/2023 9:53 AM EDT Abnormal mammogram from Last 3 Months or Most Recently Relevant to Health Maintenance Results * (ABNORMAL) Lipid Panel (03/07/2024 9:58 AM EST) Total Cholesterol 220(H) 0 - 200 mg/dL [facility] Comment: Cholesterol Reference Ranges (U.S. Department of Health and Human Services ATP III Classifications) Desirable <200 mg/dL Borderline High 200-239 mg/dL High Risk >240 mg/dL Triglyceride Reference Ranges (U.S. Department of Health and Human Services ATP III Classifications) Normal <150 mg/dL Borderline High 150-199 mg/dL High 200-499 mg/dL Very High >500 mg/dL HDL Reference Ranges (U.S. Department of Health and Human Services ATP III Classifications) Low <40 mg/dl (major risk factor for CHD) High >60 mg/dl ('negative' risk factor for CHD) LDL Reference Ranges (U.S. Department of Health and Human Services ATP III Classifications) Optimal <100 mg/dL Near Optimal 100-129 mg/dL Borderline High 130-159 mg/dL High 160-189 mg/dL Very High >189 mg/dL LDL is calculated using the NIH LDL-C calculation. Triglycerides 117 0 - 150 mg/dL [facility] HDL Cholesterol 31(L) 40 - 60 mg/dL [facility] VLDL Cholesterol Federico 21 5 - 40 mg/dL [facility] LDL Chol Calc ([facility]) 168(H) 0 - 100 mg/dL [facility] Blood 03/07/2024 9:58 AM EST 03/07/2024 Narrative [facility] (AMBULATORY) - 03/08/2024 3:07 AM EST Performed at: [address] [place] [id number] Vegetable Harvest Machine Operator: Manjit Fiore MD, Phone: [phone] Patient Fasting: Y us Marty South MD LAB BLOOD ORDERABLES Final Resu lt [facility] [employer] [facility] (AMBULATORY) [address] [id number], [facility] [address] [place] [address], * Hepatitis C RNA, Quantitative, PCR (graph) (09/29/2023 10:56 AM EDT) [facility] Hepatitis C Quantitation HCV Not Detected IU/mL [facility] Test Information Comment [facility] Comment:The quantitative ran ge of this assay is 15 IU/mL to 100 million IU/mL. Blood 09/29/2023 10:5 6 AM EDT 09/29/2023 Narrative [facility] (AMBULATORY) - 10/02/2023 10:35 AM EDT Performed at: [address] [place] [id number] Vegetable Harvest Machine Operator: Jay Mulligan MD, Phone: [phone] Patient Fasting: N us Marty South MD LAB BLOOD ORDERABLES Final Resu lt [facility] (AMBULATORY) [address] [place] [address], [place] [phone] [facility] [address] [place] [address], [place] [phone] * Mammo Diagnostic Digital Tomosynthesis Bilateral With CAD (05/12/2023 9:53 AM EDT) Anatomical Region Laterality Modality Breast Bilateral Mammography 05/12/2023 1:14 PM EDT Impressions 05/12/2023 1:21 PM EDT 1. No imaging abnormality confirmed in the left breast. 2. Asymmetries in the right breast improved with additional imaging evaluation. No corresponding sonographic abnormalities is seen. 3. Findings are most suggestive of an intracapsular rupture involving the right implant. RECOMMENDATION: Recommend breast MRI with dedicated implant protocol to evaluate the patient's right implant. Otherwise recommend she continue with annual screening mammography. ACR BI-RADS CATEGORY: 2, BENIGN CAD was utilized. The standard false-negative rate of mammography is between 10% and 25%. Complex patterns or increased breast density will markedly elevate the false-negative rate of mammography. A letter, in lay terminology, with the results of this exam was given to the patient at the time of the visit. At our facility, a triangular marker is positioned over a palpable area of concern indicated by the patient. A chuloonawick marker is placed over a visible skin lesion. A linear marker indicates a scar. This report was finalized on 05/12/2023 1:[address] Tierney Slaughter MD. Narrative 05/12/2023 1:21 PM EDT BILATERAL DIAGNOSTIC MAMMOGRAM WITH TOMOSYNTHESIS AND A FOCUSED BILATERAL BREAST ULTRASOUND CLINICAL INDICATION: 42-year-old patient recalled from screening study done on 03/31/2023 for further evaluation of both breasts. The patient is status post bilateral augmentation mammoplasty with silicone implants. The patient does indicate that her right implant feels more firm superiorly and that it appears to have migrated up. Also, the patient states she has had an interval 80 pound weight loss since her last mammograms from 2021. TECHNIQUE: Implant displaced bilateral CC and MLO focal compression views were performed as well as bilateral ML views all with tomosynthesis. A focused bilateral breast ultrasound was performed. COMPARISON: 03/31/2023, 09/16/2021 FINDINGS: Left breast: The nodular asymmetries noted in the posterior central and lateral breast did improve with focal compression imaging. The tissue spread out appearing less masslike and more similar to the patient's prior exam accounting for the patient's interval weight loss. No spiculated masses, architectural distortion or suspicious calcifications are seen in this region. Focused ultrasound imaging of the left upper outer quadrant was also performed for further evaluation. A few scattered subcentimeter cysts are noted. No solid masses or abnormal areas of shadowing are seen in the imaged portions of the left breast. Right breast: The nodular asymmetry noted in the subareolar region on the implant displaced cc view improved with focal compression imaging as did the nodular asymmetry noted in the deep central breast on the MLO implant displaced view. The tissue in this region spread out appearing more similar to the prior exams accounting for the patient's interval weight loss. No underlying concerning mass or distortion is seen. Ultrasound imaging of the superior aspect of the right breast was performed for further evaluation as well as to evaluate the patient's superior right implant as a contour abnormality was noted on the screening mammogram along the superior aspect of the right implant. Similar to the left breast there are scattered subcentimeter cysts noted. No concerning solid mass or abnormal areas of shadowing are seen. Evaluation of the implant does reveal findings most suggestive of an intracapsular rupture. No definite extracapsular silicone is seen. The axillary lymph nodes were imaged and no definite extracapsular silicone is seen within them. Tierney Slaughter MD IM MAMMOGRAPHY ORDERABLES Fin al Result from Last 3 Months or Most Recently Relevant to Health Maintenance Insurance [employer] [place]ICAID [place] Care Teams Architectural Engineer Relationship Specialty Start Date End Date Marty South MD [address] [place] [address] PCP - General Family Medicine 01/31/19
--- OUTSIDE RECORDS SUMMARY | 2024-09-12 08:42 | XMS_ITS | Encounter Summary ---
Author Organization [employer] ([place], [place], [place], [place]) Address [address] [place] [address] Care Team Providers Care Agricultural Researcher Name Role Phone Rene South MD Primary Care Provider [phone] Encounter Details Date Type Department Care Team (Late st Contact Info) Description 05/17/2020 Transcribed Document [facility] [place] [facility] [place] [address] ProviderElizabeth MD [address] [place] [address] Social History Tobacco Use Types Packs/Day Years Used Date Smoking Tobacco: Never Assessed Comments Unknown Sex and Gender Information Value Date Recorded Sex Assigned at Not on file Legal Sex Female 6:52 PM CDT Gender Identity Not on file Sexual Orientation Not on file documented as of this encounter Miscellaneous Notes * Cerner Conversion Note - Historical ProviderMD - 05/17/2020 9:52 AM CDT Event Note Entered On: 05/17/2020 9:52 EDT Performed On: 05/17/2020 9:52 EDT by KARRIE ZAYAS Event Note Description of Event : received phone order from meghan at [email or web address] office for pt to receive solumedrol 100 mg iv prior to invusion KARRIE ZAYAS - 05/17/2020 9:52 EDT Electronically signed by Oriana [facility] Conversion Foot Worker Larisa at 05/26/2022 6:09 PM CDT documented in this encounter Plan of Treatment Not on file documented as of this encounter Visit Diagnoses Not on filedocumented in this encounter Care Teams Agricultural Researcher Relationship Specialty Start Date End Date Rene South MD [address] [place] [address] PCP - General Family Medicine 01/13/22 documented as of this encounter
--- OUTSIDE RECORDS SUMMARY | 2024-09-12 08:42 | XMS_ITS | Clinical Summary ---
Author Organization [employer] ([place], [place], [place], [place]) Address [address] [place] [address] Care Team Providers Care Soccer Player Name Role Phone Rene South MD Primary Care Provider [phone] Allergies Active Allergy Reactions Criticality Noted Date Comments Latex 01/13/2022 Lisinopril Other (See Comments) 01/31/2019 Chest tightness Medications losartan-hydrochlo rothiazide (HYZAAR) 100-12.5 mg per tablet Take 1 tablet by mouth daily. 2 Active omeprazole (PriLOSEC) 40 MG capsule Take 1 capsule (40 mg total) by mouth daily. 2 Active solifenacin (VESIcare) 10 MG tablet Take 1 tablet (10 mg total) by mouth daily. 2 Active zolpidem (AMBIEN) 10 mg tablet Take 1 tablet (10 mg total) by mouth every night as needed. 2 Active famotidine (PEPCID) 40 MG tablet Take 1 tablet (40 mg total) by mouth nightly. 3 Active loratadine (CLARITIN) 10 mg tablet Take 1 tablet (10 mg total) by mouth daily. 3 Active benzonatate (TESSALON) 100 MG capsule Take 1 capsule (100 mg total) by mouth 2 (two) times daily as needed. 3 Active fluconazole (DIFLUCAN) 100 MG tablet Take 1 tablet (100 mg total) by mouth daily. 3 Active fluticasone propionate (FLONASE) 50 mcg/actuation nasal spray 1 spray daily. 3 Active gabapentin (NEURONTIN) 400 MG capsule Take 1 capsule (400 mg total) by mouth nightly. Active nitrofurantoin (MACRODANTIN) 50 MG capsule Take 1 capsule (50 mg total) by mouth daily. 3 Active nystatin (MYCOSTATIN) 100,000 unit/mL suspension Take 5 mLs (500,000 Units total) by mouth 4 (four) times daily. 3 Active potassium chloride (K-TAB) 20 mEq CR tablet Take 2 tablets (40 mEq total) by mouth daily. 3 Active predniSONE (DELTASONE) 10 mg tablet pack Take by mouth. 3 Active sulfaSALAzine (AZULFIDINE) 500 mg tablet Take 1 tablet (500 mg total) by mouth 2 (two) times daily. 2 Active ergocalciferol (ERGOCALCIFEROL) 1,250 mcg (50,000 unit) capsuleIndications :Vitamin D insufficiency Take 1 capsule (50,000 Units total) by mouth once a week. 12 capsule 3 Active potassium chloride (MICRO-K) 10 mEq CR capsule Take 1 capsule (10 mEq total) by mouth 2 (two) times daily. 3 Active leflunomide (ARAVA) 20 MG tabletIndications: Connective tissue disease (HCC) Take 1 tablet by mouth once daily 30 tablet 1 4 Active folic acid (FOLVITE) 1 MG tabletIndications: Connective tissue disease (HCC) Take 2 tablets by mouth once daily 60 tablet 4 Active Active Problems Problem Noted Date Diagnosed Date Encounter for general adult medical examination without abnormal findings 01/13/2022 Arthralgia of multiple joints 02/17/2021 Encounter for therapeutic drug level monitoring 02/17/2021 Joint stiffness 02/17/2021 Rheumatoid arthritis 02/17/2021 Other specified abnormal immunological findings in serum 01/17/2021 Vitamin D deficiency 01/17/2021 Synovitis 12/22/2020 Tenosynovitis of hand 01/30/2020 Long-term current use of steroids 06/27/2019 Muscle pain 06/27/2019 Rheumatoid arthritis involvi ng multiple sites with positive rheumatoid factor 01/31/2019 Family History Medical History Relation Name Comments Rheum arthritis Sister Relation Name Status Comments Sister Social History Tobacco Use Types Packs/Day Years Used Date Smoking Tobacco: Every Day Cigarettes 1 25 Smokeless Tobacco: Never Tobacco Cessation:Ready to Q uit: No; Counseling Given: Yes Alcohol Use Standard Drinks/Week Comments Not Currently 0 (1 standard drink = 0.6 oz pur e alcohol) Food Insecurity Answer Date Recorded Food run out past 12 months Not on file 02/08 Food did not last past 12 months Not on file 02/26/2023 Employment Answer Date Recorded Help finding and keeping a job Not on file 0 02/26/2023 Family and Community Support Answer Jesus e Recorded Help with Day to Day Activities Not on file 02/26/2023 Feeling Lonely or Isolated Not on file 02/26 Educational Attainment Answer Date Kareem rded Speak language other than Zambian at home Not on file 02/26/2023 Want help with school or training Not on file 02/26/2023 Substance Use Answer Date Recorded Used prescription meds for non-medical reasons N ot on file 02/26/2023 Used illegal drugs past 12 months Not on file 02/26/2023 Comments Unknown Sex and Gender Information Value Date Recorded Sex Assigned at Not on file Legal Sex Female 6:52 PM CDT Gender Identity Not on file Sexual Orientation Not on file Last Filed Vital Signs Vital Sign Reading Time Taken Comments Blood Pressure 145/104 03/03/2023 10:43 AM EST Pulse 88 03/03/2023 10:43 AM EST Temperature 36.8 C (98.2 F) 09/02/2022 1:27 PM EDT Respiratory Rate 18 09/02/2022 1:27 PM EDT Oxygen Saturation 97% 12/02/2022 10: 28 AM EDT Inhaled Oxygen Concentration - - Weight 66.1 kg (145 lb 12.8 oz) 024 10:43 AM EST Height 167.6 cm (5' 6 ) 03/03/2023 10:4 3 AM EST Body Mass Index 23.53 03/03/2023 10:43 AM EST Plan of Treatment Health Maintenance Due Date Last Done Comments Depression Screening (12+) 1991 HIV Screening 10/05/1994 Hepatitis C Screening 10/05/1997 DTAP/TDAP/TD VACCINES (1 - Tdap) 10/05/1998 Pneumococcal Vaccine: 0-49 Years (1 of 2 - PCV) 1998 Lipid Panel 1999 Pap Smear 10/05/2000 Breast Cancer Screening 2019 COVID-19 VACCINE (2023- season) 2023 Tobacco Cessation Counseling and Screening (12+) 03/0303/03/2023 Influenza Vaccine (#1) 2024 Insurance [facility] MEDICAID Care Teams Soccer Player Relationship Specialty Start Date End Date Rene South MD [address] [place] [address] PCP - General Family Medicine 01/13/22
--- OUTSIDE RECORDS SUMMARY | 2024-09-12 08:42 | XMS_ITS | Encounter Summary ---
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 Not on file Not on file documented as of this encounter Functional Status documented as of this encounter Plan of Treatment Upcoming Encounters Date Type Department Care Team (Late st Contact Info) Description 03/09/2025 10:15 AM EST Office Visit [facility] [address] [facility] [place] [address] Marty South MD [address] [place] [address] documented as of this encounter Visit Diagnoses Not on filedocumented in this encounter Care Teams Welt Pocket Machine Operator Relationship Specialty Start Date End Date Marty South MD [address] [place] [address] PCP - General Family Medicine 01/31/19 documented as of this encounter
--- OUTSIDE RECORDS SUMMARY | 2024-09-12 08:42 | XMS_ITS | Encounter Summary ---
Author Organization [employer] ([place], [place], [place], [place]) Address [address] [place] [address] Care Team Providers Care Filling Technician Name Role Phone Rene South MD Primary Care Provider [phone] Encounter Details Date Type Department Care Team (Late st Contact Info) Description 05/31/2020 Transcribed Document [facility] [place] [address] ProviderElizabeth MD [facility] [place], [place] [id number] Social History Tobacco Use Types Packs/Day Years Used Date Smoking Tobacco: Never Assessed Comments Unknown Sex and Gender Information Value Date Recorded Sex Assigned at Not on file Legal Sex Female 6:52 PM CDT Gender Identity Not on file Sexual Orientation Not on file documented as of this encounter Miscellaneous Notes * Cerner Conversion Note - Historical ProviderMD - 05/31/2020 9:00 AM CDT Pain Assessment Entered On: 05/31/2020 13:53 EDT Performed On: 05/31/2020 9:51 EDT by HINA MUÑOZ RN Intervention Information: acetaminophen Performed by HINA MUÑOZ RN on 05/31/2020 08:51:00 EDT acetaminophen,650mg Oral Pain Assessment Pain Assessment : Follow-up assessment Pain Scale Used : 0-10 Scale HINA MUÑOZ RN - 05/31/2020 13:53 EDT Pain Scale Intensity : 0 HINA MUÑOZ RN - 05/31/2020 13:53 EDT Image 4 - Images currently included in the form version of this document have not been included in the text rendition version of the form. documented in this encounter Plan of Treatment Not on file documented as of this encounter Visit Diagnoses Not on filedocumented in this encounter Care Teams Filling Technician Relationship Specialty Start Date End Date Rene South MD [address] [place] [id number] PCP - General Family Medicine 01/13/22 documented as of this encounter
--- OUTSIDE RECORDS SUMMARY | 2024-09-12 08:42 | XMS_ITS | Encounter Summary ---
Author Organization [employer] ([place], [place], [place], [place]) Address [address] [place] [address] Care Team Providers Care Manager Facility Name Role Phone Rene South MD Primary Care Provider [phone] Reason for Visit * Reason Comments Medication Refill Encounter Details Date Type Department Care Team (Late st Contact Info) Description 12/25/2021 Refill [facility] Rhe[facility]ology [address] [place] [address] Iraida Ceron, FREDC [address] [place] [address] Social History Tobacco Use Types Packs/Day Years Used Date Smoking Tobacco: Never Assessed Comments Unknown Sex and Gender Information Value Date Recorded Sex Assigned at Not on file Legal Sex Female 6:52 PM CDT Gender Identity Not on file Sexual Orientation Not on file documented as of this encounter Miscellaneous Notes * Telephone Encounter - Mariajose Arguello - 12/29/2021 9:43 AM EST Spoke with patient, scheduled an appt for 01/13/22. Message sent back to provider for 30 day supply refill. NEER INTERN * Telephone Encounter - Iraida Ceron - 12/25/2021 4:18 PM EST She will need to reschedule her appointment for additional refills. Hasn't been seen since August. Guidelines are to have labs done every 12 weeks. Once she has rescheduled appointment, [facility] I will send in one month supply if needed pending when her appointment is. Thanks. NEER INTERN * Telephone Encounter - Mariajose Arguello - 12/25/2021 10:33 AM EST Pt requesting refill- looks like she missed her appt in November and has not r/s. Please advise. NEER INTERN * Telephone Encounter - Marci Stevo - 12/25/2021 10:05 AM EST .Celestina Lowry1980 is calling for a medication refill Medication name:leflunomide (ARAVA) 20 MG tablet Last office visit: 11.18.21 Next office visit: None Pharmacy: [facility] Supply: 30 Additional notes: NEER INTERN documented in this encounter Plan of Treatment Not on file documented as of this encounter Visit Diagnoses Not on filedocumented in this encounter Care Teams Manager Facility Relationship Specialty Start Date End Date Rene South MD [address] [place] [address] [place] [address] PCP - General Family Medicine 01/13/22 documented as of this encounter
--- OUTSIDE RECORDS SUMMARY | 2024-09-12 08:42 | XMS_ITS | Referral Summary ---
Author Organization [employer] ([place], [place], [place], [place]) Address [address] [place] [address] Care Team Providers Care Cigarette Machine Filler Name Role Phone Rene South MD Primary Care Provider [phone] Allergies Active Allergy Reactions Criticality Noted Date [...] multiple sites with positive rheumatoid factor 01/31/2019 Social History Tobacco Use Types Packs/Day Years [...] Date Kareem rded Speak language other than Taiwanese at home Not on file 02/26/2023 Want [...] 03/03/2023 10:43 AM EST Plan of Treatment Not on file Insurance [facility] MEDICAID Care Teams Cigarette Machine Filler Relationship Specialty Start Date End Date Rene South MD [address] [place] [address] PCP - General Family Medicine 01/13/22
[2024-09-12 09:18] LABS: Hematocrit 46.9 % (37.0-47.0); Hemoglobin 16.0 g/dL (12.2-16.2); Immature Granulocytes % 0.4 %; Mean Corpuscular HGB Conc 34.1 g/dL (31.8-35.4); Mean Corpuscular Hemoglobin 30.3 pg (27.0-31.2); Mean Corpuscular Volume 88.8 fl (81-99); Nucleated Red Blood Cells % 0 %; Platelet Count 189 K/mm3 (142-424); Red Blood Count 5.28 M/mm3 (4.20-5.40); Red Cell Distribution Width-SD 42.5 fL; White Blood Count 8.2 K/mm3 (4.8-10.8)
[2024-09-12 09:40] LABS: Albumin Level 3.7 g/dl (3.5-5.0); Chloride 101 mmol/L (98-107); Potassium 3.7 mmoL/L (3.5-5.1); Sodium 137 mmol/L (136-145)
[2024-09-12 09:43] LABS: Alanine Aminotransferase 13 U/L (12-78); Albumin/Globulin Ratio 1.1 (1.1-1.8); Alkaline Phosphatase 87 U/L (38-126); Anion Gap 5.7 mEq/L (5-15); Aspartate Amino Transferase 20 U/L (14-36); Bilirubin,Total 0.3 mg/dl (0.2-1.3); Blood Urea Nitrogen 7 mg/dl (7-17); Calcium 9.5 mg/dl (8.4-10.2); Carbon Dioxide 34 mmol/L (22.0-30.0); Cholesterol 120 mg/dl (140-200); Creatinine,Serum 0.70 mg/dl (0.52-1.04); Estimated Glomerular Filt Rate 91 ml/min (>60); GFR (African American) 110 ML/MIN (>60); Globulin 3.4 g/dL (1.3-3.2); Glucose 103 mg/dl (74-100); Total Protein,Serum 7.1 g/dl (6.3-8.2); Triglycerides 143 mg/dl (30-150)
[2024-09-12 09:44] LABS: HDL Cholesterol 35 mg/dl (40-60)
[2024-09-12 10:02] LABS: 25-OH Vitamin D, Total 59.9 ng/mL (30-100)
[2024-09-12 10:53] LABS: Uric Acid 4.0 mg/dl (2.5-6.2)
== END 2024-09-12 23:59 | disposition home or self-care (01) ==
PROVIDERS: PCP Family Medicine; Visit Provider Family Medicine
DX: E78.00 Pure hypercholesterolemia, unspecified (principal); I10 Essential (primary) hypertension; E55.9 Vitamin D deficiency, unspecified
CPT/HCPCS: 36415; 80053; 80061; 82306; 84550; 85025